=== PATIENT | female | born 1955 | race Caucasian/White ===

== ENCOUNTER 2017-08-04 12:27 | Emergency (ER) | payer OTHER ==
[~2017-08-04] VITALS: Ht 167.6 cm; Wt 97.3 kg
[2017-08-04 12:29] VITALS: BP 175/81
== END 2017-08-04 13:22 | disposition home or self-care (01) ==
LOC: ED 13:05
DX: K11.5 Sialolithiasis (principal)
CPT/HCPCS: 99281